=== PATIENT | male | born 1980 | race Caucasian/White ===

== ENCOUNTER 2016-07-11 11:38 | Emergency (ER) | payer BC ==
[2016-07-11 12:50] LABS: Hematocrit 43 % (42-52); Hemoglobin 14.5 g/dl (14.0-18.0); Mean Corpuscular HGB Conc 34 g/dl (31-36); Mean Corpuscular Hemoglobin 32 pg (27-31); Mean Corpuscular Volume 94 fL (80-94); Mean Platelet Volume 9 um3 (7.4-10.4); Red Blood Count 4.58 10^6/ul (4.0-5.4); Red Cell Distribution Width 13 % (10.5-15); White Blood Count 6.3 10^3/ul (3.5-10.8)
[2016-07-11 13:01] LABS: Albumin 4.6 g/dL (3.2-5.2); BUN/Creatinine Ratio 15.2 (8-20); Calcium 9.8 mg/dL (8.6-10.3); EGFR African American 121.1 (>60); EGFR Non-African American 94.2 (>60); Globulin 2.4 g/dL (2-4); Potassium 3.8 mmol/L (3.5-5.0); Total Bilirubin 0.4 mg/dL (0.2-1.0)
[2016-07-11 14:47] VITALS: BP 117/67
--- NOTE | 2016-07-11 17:43 | ED ---
Rodney Noel Erika, scribed for Boris Michel MD on 07/11/16 at 1234 . Dizziness - HPI Summary HPI Summary: Patient is a 35-year-old male presenting to the ED with a CC of lightheadedness starting this morning. Patient reports lightheadedness and weakness that worsened throughout the morning and he developed chills and rigors. He also reports a rapid heart rate, but denies having irregular rhythm. Currently, patient denies lightheadedness, and just notes chills. Pt reports cold-like symptoms recently, but denies fever, cough, chest congestion, severe pain, vomiting, diarrhea, decreased PO intake, and rashes. He does note ear pressure for the past few months. Pt denies medical problems and denies taking daily medication. FHx SD, cancer. Pt smokes, uses marijuana, and does not drink. - History Of Current Complaint Chief Complaint: EDDizziness Stated Complaint: DIZZY Time Seen by Provider: 07/11/16 12:17 Hx Obtained From: Patient Onset/Duration: Resolved Timing: Constant Severity Initially: Moderate Severity Currently: Mild Character: Lightheaded, Weak Alleviating Factor(s): Other - spontaneous resolution Associated Signs And Symptoms: Positive: Chills, Other: - rapid heart rate. Negative: Chest Pain, Decreased Oral Intake, Change In Diet, Fever PMH/Surg Hx/FS Hx/Imm Hx Previously Healthy: Yes Endocrine/Hematology History: Denies: Hx Diabetes Cardiovascular History: Denies: Hx Hypertension Infectious Disease History: No Infectious Disease History: Denies: Traveled Outside the [place] in Last 30 Days - Family History Known Family History: Positive: Cardiac Disease, Other - cancer - Social History Alcohol Use: None Hx Substance Use: Yes Substance Use Type: Reports: Marijuana Hx Tobacco Use: Yes Smoking Status (MU): Current Every Day Smoker Review of Systems Positive: Chills - and rigors. Negative: Fever Positive: Ear Ache - ear pressure Cardiovascular: Other - rapid heart rate Negative: Chest Pain Negative: Cough Negative: Vomiting, Diarrhea Negative: Rash Neurological: Other - lightheadedness Positive: Weakness - generalized All Other Systems Reviewed And Are Negative: Yes Physical Exam - Summary Physical Exam Summary: Constitutional: Comfortable, pleasant, alert HEENT: moist mucosa, ROLANDA, TMs pearly white with no redness or effusion. Pharynx with no redness or exudate Neck: Soft, supple, no adenopathy, no edema Heart: S1, S2, RRR, no murmurs, rubs, or gallops Lungs: clear, breathing comfortably, no wheezes, no rales Abdomen: Soft, flat, non-tender. No CVA tenderness Extremities: No edema, calves non-tender Neurological: A&Ox3 Psychological: logical, coherent Triage Information Reviewed: Yes Vital Signs On Initial Exam: Initial Vitals Temp Pulse Resp BP Pulse Ox 98.2 F 64 22 142/87 99 07/11/16 11:38 07/11/16 11:38 07/11/16 11:38 07/11/16 11:38 07/11/16 11:38 Vital Signs Reviewed: Yes Diagnostics - Vital Signs Vital Signs Temp Pulse Resp BP Pulse Ox 07/11/16 11:38 98.2 F 64 22 142/86 99 - Laboratory Lab Results: Lab Results 07/11/16 Range/Units 11:58 POC Glucose (mg/dL) 128 H (74-106) mg/dL Result Diagrams: 07/11/16 12:12 07/11/16 12:12 Lab Statement: Any lab studies that have been ordered have been reviewed, and results considered in the medical decision making process. - EKG 13:20 Cardiac Rate: Bradycardia - at 56 bpm EKG Rhythm: Sinus Bradycardia EKG Interpretation: No significant ST changes Dizzy Course/Dx - Course Assessment/Plan: He presents with lightheadedness, with no focal neuro Sx nor deficits. He reports no Sx that suggest arrhythmias, as it was slow-onset and slow resolution, and he has no palpitations. He also does not display any Hx or exam findings consistent with sepsis or severe dehydration. He is drinking and handling fluids, he is completely asymptomatic now, and I believe he is safe for discharge. This may be related to his recent URI, but without fever or congestion, I also do not believe this is influenza or any treatable infectious process. - Diagnoses Differential Diagnosis/HQI/PQRI: Anxiety, Coronary Artery Disease, CVA, Dysrhythmia, Hyperventilation, Hypovolemia, Labyrinthitis, Medication Reaction, Metabolic Abnormality, Myocardial Infarction, Seizure, Transient Ischemic Attack , Vasovagal Reaction Provider Diagnoses: Lightheadedness Discharge - Discharge Plan Condition: Good Disposition: HOME Patient Education Materials: Lightheadedness (ED) Referrals: [facility] [Outside] The documentation as recorded by the Rodney gunter Erika accurately reflects the service I personally performed and the decisions made by , Boris Michel MD.
== END 2016-07-11 14:58 | disposition home or self-care (01) ==
LOC: ED 11:38
DX: R42 Dizziness and giddiness (principal); R00.1 Bradycardia, unspecified; R53.1 Weakness; R68.83 Chills (without fever); H92.09 Otalgia, unspecified ear; F17.210 Nicotine dependence, cigarettes, uncomplicated
CPT/HCPCS: 36415; 80053; 85025; 93005; 99282